=== PATIENT | male | born 1990 | race American Indian/Alaskan Native ===

== ENCOUNTER 2021-01-26 16:48 | Emergency (ER) | payer SELFPAY ==
[2021-01-26 17:17] VITALS: BP 139/82
--- NOTE | 2021-01-26 17:51 | Emergency Department Report ---
Chief Complaint: Urogenital-Male Stated Complaint: STD Time Seen by Provider: 01/26/21 17:45 - HPI History of Present Illness: 30-year-old -[place] male presents to the emergency room stating he has penile discharge that he has noticed this morning. Patient denies any fever chills no abdominal pain no testicular swelling or testicular pain. Patient denies any nausea no vomiting but does admit to unprotected intercourse with 2 partners in the last 6 months. Patient denies any past medical history currently takes no medications on a daily basis and has no known drug allergies. - Exam Vital Signs: Vital Signs 01/26/21 17:15 Temperature 98.7 F Pulse Rate 57 L Respiratory 18 Rate Blood Pressure 139/82 O2 Sat by Pulse 97 Oximetry Physical Exam: General: Awake, appropriately interactive, no acute distress. Neck: Supple. Full range of motion intact. Cardiovascular: Normal peripheral perfusion. Pulmonary: No respiratory distress. Patient is speaking normally without use of accessory muscles. Skin: No apparent rashes or lesions. Neurological: No facial asymmetry. Speech is clear. Follows commands. Patient is alert and oriented. Musculoskeletal: Full range of motion, no crepitus. Psych: Cooperative. Appropriate mood and affect. MSE screening note: Focused history and physical exam performed. Due to findings the following was ordered: 30-year-old -[place] male presents to the emergency room stating he has penile discharge that he has noticed this morning. Patient denies any fever chills no abdominal pain no testicular swelling or testicular pain. Patient denies any nausea no vomiting but does admit to unprotected intercourse with 2 partners in the last 6 months. Patient denies any past medical history cu rrently takes no medications on a daily basis and has no known drug allergies. Discussed with patient he can follow-up at the health department or urgent care to have a full STD evaluation and treatment. ED Disposition for MSE Disposition: DC-01 TO HOME OR SELFCARE Is pt being admited?: No Does the pt Need Aspirin: No Condition: Stable Instructions: Safe Sex Additional Instructions: Follow-up at the health department or urgent care. Referrals: [facility] [Outside] - 3-5 Days [facility] [Outside] - 3-5 Days [facility] [Outside] - 3-5 Days Time of Disposition: 17:51
== END 2021-01-26 19:00 | disposition home or self-care (01) ==
LOC: ED 16:48
DX: R36.9 Urethral discharge, unspecified (principal)
CPT/HCPCS: 99282

== ENCOUNTER 2022-01-15 09:50 | Emergency (ER) | payer SELFPAY ==
[2022-01-15 10:04] VITALS: BP 118/71
[2022-01-15] MEDS ORDERED: LIDOCAINE-MPF (1%) 10 MG/1 ML VIAL 5 ML INFILTRATI ONE (13:42)
[2022-01-15] MEDS ORDERED: metroNIDAZOLE 500 MG TAB PO ONE (13:42)
[2022-01-15] MEDS ORDERED: DOXYCYCLINE 100 MG CAP PO ONE (13:42)
--- NOTE | 2022-01-15 13:54 | Emergency Department Report ---
ED Male HPI - General Chief complaint: Urogenital-Male Stated complaint: BURN WHEN URINATING/DISCHARGE Source: patient Mode of arrival: Ambulatory Limitations: No Limitations - History of Present Illness Initial comments: 31-year-old male with no significant past medical history reports to the ER with complaints of dysuria and exposure to STD. Patient reports 1 incident of discharge in the morning upon urination but denies frequent discharge. Patient reports last week having unprotected sex and symptoms started 2 to 3 days ago. Patient denies nausea vomiting diarrhea no abdominal pain. No other acute symptoms reported. - Related Data Previous Rx's Medication Instructions Recorded Last Taken Type Doxycycline Hyclate 100 mg PO BID 7 Days #14 cap 01/15/22 Unknown Rx Allergies Allergy/AdvReac Type Severity Reaction Status Date / Time No Known Allergies Allergy Verified 01/26/21 17:18 ED Review of Systems ROS: Stated complaint: BURN WHEN URINATING/DISCHARGE Other details as noted in HPI Comment: All other systems reviewed and negative Gastrointestinal: denies: abdominal pain, nausea, vomiting, diarrhea Genitourinary: dysuria, discharge. denies: urgency, frequency, hematuria, testicular pain ED Past Medical Hx - Past Medical History Previous Medical History?: No - Medications Home Medications: Home Medications Medication Instructions Recorded Confirmed Last Taken Type Doxycycline Hyclate 100 mg PO BID 7 Days #14 cap 01/15/22 Unknown Rx ED Physical Exam - General Limitations: No Limitations General appearance: alert, in no apparent distress - Head Head exam: Present: atraumatic, normocephalic - Eye Eye exam: Present: normal appearance - ENT ENT exam: Present: mucous membranes moist - Neck Neck exam: Present: normal inspection - Respiratory Respiratory exam: Present: normal lung sounds bilaterally. Absent: respiratory distress - Cardiovascular Cardiovascular Exam: Present: regular rate, normal rhythm. Absent: systolic murmur, diastolic murmur, rubs, gallop - GI/Abdominal GI/Abdominal exam: Present: soft, normal bowel sounds - Rectal Rectal exam: Present: deferred - Extremities Exam Extremities exam: Present: normal inspection - Back Exam Back exam: Present: normal inspection - Neurological Exam Neurological exam: Present: alert, oriented X3 - Psychiatric Psychiatric exam: Present: normal affect, normal mood - Skin Skin exam: Present: warm, dry, intact, normal color. Absent: rash ED Course Vital Signs 01/15/22 10:03 Temperature 98.5 F Pulse Rate 57 L Respiratory 16 Rate Blood Pressure 118/71 [Left] O2 Sat by Pulse 98 Oximetry ED Medical Decision Making - Medical Decision Making 31-year-old male with exposure to STD. Unknown type of STD. Patient reports dysuria for 2 days with 1 occurrence of discharge whitish in color. No other acute symptoms reported. No acute findings on physical exam. Orders placed for gonorrhea and chlamydia for urine collection. Rocephin 500 mg IM and doxycycline 100 mg given for possible gonorrhea chlamydia exposure. Flagyl 2000 mg for trichomonas exposure STD. Patient to be discharged home with doxycycline for continuation of antibiotic treatment for chlamydia and if test results are negative to stop taking doxycycline. Patient agrees with plan of care and verbalizes understanding. Patient informed to listen out for phone call from [facility] for follow- up on labs. Patient also informed to follow his primary care provider. Patient informed about safe sex practices. Vital Signs 01/15/22 10:03 Temperature 98.5 F Pulse Rate 57 L Respiratory 16 Rate Blood Pressure 118/71 [Left] O2 Sat by Pulse 98 Oximetry Critical care attestation.: If time is entered above; I have spent that time in minutes in the direct care of this critically ill patient, excluding procedure time. ED Disposition Clinical Impression: Dysuria, STD exposure Disposition: 01 HOME / SELF CARE / HOMELESS Is pt being admited?: No Condition: Stable Instructions: Safe Sex, Chlamydia, Male, Gonorrhea Test Prescriptions: Doxycycline Hyclate 100 mg PO BID 7 Days #14 cap Referrals: PRIMARY CARE, [Primary Care Provider] - 3-5 Days Time of Disposition: 13:58
[2022-01-15 14:08] LABS: Bilirubin,Urine NEG (Negative); Blood,Urine NEG (Negative); Color,Urine Yellow (Yellow); Mucus,Urine 2+ /HPF; Protein,Urine <15 mg/dL mg/dL (Negative); Urobilinogen,Urine < 2.0 mg/dL (<2.0)
== END 2022-01-15 14:20 | disposition home or self-care (01) ==
LOC: ED 09:50
DX: R30.0 Dysuria (principal); Z20.2 Contact with and (suspected) exposure to infections with a predominantly sexual mode of transmission
CPT/HCPCS: 81001; 87591; 96372; 99283; J0696; J3490